=== PATIENT | female | born 1995 | race Caucasian/White ===

== ENCOUNTER 2021-02-15 15:11 | Emergency (ER) | payer SELFPAY ==
--- OUTSIDE RECORDS SUMMARY | 2021-02-15 15:13 | XMS REPORT | Continuity of Care Document ---
:1995 Author Organization [facility] Address [address] [place] [address] [address] 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 Social History Smoking Status Start Date Stop Date Source Light Tobacco Smoker [facility] Medications Ordered Filled Start Stop Current Ordering Indication Dosage Frequency Signature Comments Components Source Medication Medication Date Date Medication? Clinician (SIG) Name Name Flagyl 500 Flagyl 500 No 1 Q12H Flagyl 500 [place] mg tablet mg tablet mg tablet da Take 1 Take 1 Take 1 [facility] tablet tablet tablet al every 12 every 12 every 12 Hea lth hours by hours by hours by Out reac oral route oral route oral route h for 7 days. for 7 days. for 7 Program days. hydroxyzine hydroxyzine No 1 Q1D hydroxyzin [place] HCl 25 mg HCl 25 mg e HCl 25 d a tablet Take tablet Take mg tablet [facility] 1 tablet 1 tablet Take 1 al every day every day tablet Hea lth by oral by oral every day Outr eac route. route. by oral h route. Program Lessina 0.1 Lessina 0.1 No 1 Q1D Lessina [place] mg-20 mcg mg-20 mcg 0.1 mg-20 da tablet Take tablet Take mcg tablet [facility] 1 tablet 1 tablet Take 1 al every day every day tablet Hea lth by oral by oral every day Outr eac route. route. by oral h route. Program azithromyci azithromyci No 2 Q1D azithromyc [place] n 500 mg n 500 mg in 500 mg da tablet Take tablet Take tablet [facility] 2 tablets 2 tablets Take 2 al every day every day tablets He alth by oral by oral every day Outr eac route for 1 route for 1 by oral h day. day. route for Program 1 day. Vital Signs Vital Name Observation Time Observation Value Comments Source BP Diastolic 2019-03-27 00:00:00 90 mm[Hg] [facility] Height 2019-03-27 00:00:00 59 [in_i] [facility] BMI (Body Mass 2019-03-27 00:00:00 25 kg/m2 [facility] Index) [facility] Program BP Systolic 2019-03-27 00:00:00 125 mm[Hg] [facility] Body Weight 2019-03-27 00:00:00 124 [lb_av] [facility] Procedures Procedure Date / Time Performed Performing Clinician Sourc e Cholecystectomy [place] [facility] Dilation and Curettage [place] [facility] Plan of Care Planned Activity Planned Date Details Comments Source Diagnostic Test 2019-03-27 bacterial vaginosis [place] Pending 00:00:00 + vaginitis panel, [facility] [place] vaginal [code = Program bacterial vaginosis + vaginitis panel, vaginal] Encounters Start End Encounter Admission Attending Care Care Encounter Source Date/Time Date/Time Type Type Clinicians Facility Department ID 2019-03-27 2019-03-27 Priscilla BERGER [place] - [id number] 00:00:00 00:00:00 Brenda Huber, [facility] BIOMETRIC SCREENER: [address] E[address] N, SLASH TRIMMER [facility], Out[facility] [id number] [facility] , Ph. Results This patient has no known results.
--- NOTE | 2021-02-15 17:49 | ER ---
Nurse's Notes [facility] Name: Shelbie Mendenhall Age: 25 yrs Sex: Female : 1995 Arrival Date: 02/15/2021 Time: 15:11 Bed Waiting Private MD: Diagnosis: Presentation: 02/15 15:51 Chief complaint: Patient states: "I was working in the garden, but I noticed my foot ss was red and swollen so I looked down and it looks like something maybe bit me.". Coronavirus screen: Vaccine status:. Ebola Screen: Patient denies exposure to infectious person. Patient denies travel to an Ebola-affected area in the 21 days before illness onset. Initial Sepsis Screen: Does the patient meet any 2 criteria? No. Patient's initial sepsis screen is negative. Does the patient have a suspected source of infection? No. Patient's initial sepsis screen is negative. Risk Assessment: Do you want to hurt yourself or someone else? Patient reports no desire to harm self or others. Onset of symptoms was February 15, 2021. 15:51 Method Of Arrival: Ambulatory 15:51 Acuity: LUIS ANGEL 4 ss Historical: - Allergies: 15:53 No Known Allergies; ss - Home Meds: 15:53 None [Active]; ss - PMHx: 15:53 None; ss - PSHx: 15:53 D\\T\\C; Cholecystectomy; ss - Immunization history:: Client reports having NOT received the Covid vaccine. - Social history:: Smoking status: Patient reports the use of cigarette tobacco products, smokes one-half pack cigarettes per day. Assessment: 17:47 Reassessment: called from [facility] three times, no answer. Unable to locate patient. Vital Signs: 15:51 BP 124 / 84; Pulse 123; Resp 18; Temp 99.1(TE); Pulse Ox 96% on R/A; Weight 49.9 kg; ss Height 4 ft. 11 in. (149.86 cm); Pain 6/10; 15:51 Body Mass Index 22.22 (49.90 kg, 149.86 cm) ED Course: 15:11 Patient arrived in ED. mr 15:52 Triage completed. ss 15:53 Arm band placed on right wrist. ss Administered Medications: No medications were administered Outcome: 17:48 Patient left the ED. ss Signatures: Alexia Mckenzie mr Tammy, Brianna, RN RN ss
[2021-02-15 17:53] VITALS: BP 124/84; TEMP 99.1; O2SAT 96
== END 2021-02-15 17:48 | disposition left against medical advice (07) ==
LOC: ER 15:11
DX: Z53.21 Procedure and treatment not carried out due to patient leaving prior to being seen by health care provider (principal)
CPT/HCPCS: 99281

== ENCOUNTER 2022-12-09 18:50 | Emergency (ER) | payer SELFPAY ==
[2022-12-09] MEDS ORDERED: ATROPINE SULF 1 MG/10 ML SYR IV ONE (18:51)
[2022-12-09] MEDS ORDERED: ETOMIDATE 20 MG/10 ML VIAL IV ONE (18:51)
[2022-12-09] MEDS ORDERED: EPINEPHrine 1 MG/10 ML SYR IV ONE (18:51)
[2022-12-09] MEDS ORDERED: Calcium Chloride 10% INJ SYR IV ONE (18:51)
[2022-12-09] MEDS ORDERED: ROCURONIUM 50 MG/5 ML VIAL IV ONE (18:51)
[2022-12-09] MEDS ORDERED: AMIODARONE HCL 150 MG/3 ML INJ IV ONE (18:51)
[2022-12-09] MEDS ORDERED: EPINEPHRINE/PF 1 MG/ML AMP IV ONE (18:51)
--- OUTSIDE RECORDS SUMMARY | 2022-12-09 18:53 | XMS REPORT | Continuity of Care Document ---
:[address] [facility] t Address [address] [place] [address] Care Team Providers Name Role Phone Zunmariliaa_Bridger Attending Clinician Unavailable LAVINIA MEJIA Attending Clinician Unavailable VIK TERRELL Attending Clinician Unavailable SKYE Attending Clinician Unavailable Jen Attending Clinician Unavailable LYLA LEE Attending Clinician Unavailable Robert Isabel Attending Clinician Unavailable DAVID CAPELLAN Attending Clinician Unavailable SEBAS BARBA Attending Clinician Unavailable Jolynn Gtz Attending Clinician Unavailable JOSÉ GRAYSON Attending Clinician Unavailable RUBEN ALICEA Attending Clinician Unavailable GINGER GARCIA Attending Clinician Unavailable Ariadna ANN Attending Clinician Unavailable ABIOLA CASTRO Attending Clinician Unavailable Zunmariliaa_S Admitting Clinician Unavailable SKYE Admitting Clinician Unavailable Jen Admitting Clinician Unavailable Robert Isabel Admitting Clinician Unavailable Jolynn Gtz Admitting Clinician Unavailable Payers Payer Name Policy Type Policy Number Effective Date Expiration Date Bridger j[place] HAR[place] [id number] 2021 ADVANT[place] (HMO) 00:00:00 [place] [id number] [place] (PPO) 00:00:00 Problems Condition Condition Condition Status Onset Resolution Last Treating Co mments Source Name Details Category Date Date Treatment Clinician Date Major Major Problem Active [place] depressive Depressive da disorder Disorder [facility] Posttrauma Posttrauma Problem Active M at[facility] tic stress tic Stress da disorder Disorder [facility] History of History of Problem Active M at[facility] 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 Social History Smoking Status Start Date Stop Date Source Light Tobacco Smoker [facility] Medications Ordered Filled Start Stop Current Ordering Indication Dosage Frequency Signature Comments Components Source Medication Medication Date Date Medication? Clinician (SIG) Name Name yaneth davidsonithcleoarnav No 2 Q1D azithromyc [place] n 500 mg n 500 mg in 500 mg da tablet Take tablet Take tablet [facility] 2 tablets 2 tablets Take 2 al every day every day tablets He alth by oral by oral every day Outr eac route for 1 route for 1 by oral h day. day. route for Program 1 day. Flagyl 500 Flagyl 500 No 1 Q12H [...] route. route. by oral h route. Program Vital Signs Vital Name Observation Time Observation Value Comments Source BP Diastolic 2019-03-27 00:00:00 90 mm[Hg] [facility] [facility] Height 2019-03-27 00:00:00 59 [in_i] [place] [facility] BMI (Body Mass 2019-03-27 00:00:00 25 kg/m2 [facility] BP Systolic 2019-03-27 00:00:00 125 mm[Hg] [place] [facility] Body Weight 2019-03-27 00:00:00 124 [lb_av] [facility] Procedures Procedure Date / Time Performed Performing Clinician Sourc e Cholecystectomy [place] [facility] Dilation and Curettage [place] [facility] Plan of Care Planned Activity Planned Date Details Comments Source Diagnostic Test 2019-03-27 bacterial vaginosis [place] [facility] Pending 00:00:00 + vaginitis panel, [facility] vaginal [code = Program bacterial vaginosis + vaginitis panel, vaginal] Encounters Start End Encounter Admission Attending Care Care Encounter Source Date/Time Date/Time Type Type Clinicians Facility Department ID 2022-03-08 Outpatient [facility] [id number] [place] 09:03:23 [id number] [facility] 2022-12-08 2022-12-08 Outpatient SFA [id number] [id number] Yevgeniy 09:29:16 09:29:16 [id number] [place] 2021-11-10 2021-11-10 Outpatient Zuniga_S [facility] MMG [id number] [place] 11:42:00 11:42:00 [facility] 2021-07-13 2021-07-13 Emergency ER OWO, TOKS [facility] [id number] [place] 09:39:00 10:50:00 -[id number] [facility] 2021-03-22 2021-03-23 Emergency ER VIK TERRELL [facility] [id number] [place] 22:50:00 01:45:00 -[id number] [facility] 2020-12-29 2020-12-29 Outpatient JESUS_RANI BERGER [id number] [place] 04:11:00 04:11:00 SSA 0524 [facility] 2020-12-29 2020-12-29 Outpatient JENN HIDEVAUGHN [facility] [id number] [place] 00:00:00 00:00:00 SSA 0712 [facility] 2020-02-19 2020-02-19 Outpatient Young_J [facility] [id number] [place] 04:32:00 04:32:00 [facility]01 [facility] 2020-02-11 2020-02-11 [facility] [id number] [place] 12:05:00 12:05:00 0824 [facility] 2019-04-04 2019-04-04 Outpatient JENN BERGER [facility] [id number] [place] 05:13:00 05:13:00 SSA 1106 [facility] 2019-03-27 2019-03-27 Lyla [facility] [place] - [id number] [facility] 00:00:00 00:00:00 Brenda Geovanny Huber, [facility] DIRECTOR HEMATOLOGY: [address] F N, SUPERVISOR L[employer]STOCK YARD [facility], [place] [address] [facility] , Ph. 2018-08-22 2018-08-22 Outpatient NICHOL LEE [facility] [id number] [place] 14:27:00 14:27:00 LYLA -[id number] [facility] 2015-05-22 2015-05-22 Emergency ER OWO, TOKS [facility] [id number] [place] 17:19:00 18:25:00 -[id number] [facility] 2015-02-11 2015-02-12 Inpatient ER Chalo, [facility] [id number] [place] 07:13:00 13:16:00 Robert -[id number] [facility] 2014-08-03 2014-08-03 Emergency ER CAPELLAN, [facility] [id number] [place] 09:44:00 11:30:00 WASIM -[id number] [facility] 2014-02-06 2014-02-06 Emergency [facility] [id number] [place] 20:49:00 22:15:00 OBIDIKE -[id number] [facility] 2012-12-24 2012-12-26 Inpatient EL Tresa, [facility] [id number] [place] 15:08:00 14:20:00 Jolynn -[id number] [facility] 2012-12-23 2012-12-23 Emergency [place], [facility] [id number] [place] 03:02:00 04:25:00 Jolynn -[id number] [facility] 2012-12-21 2012-12-21 Emergency [place], [facility] [id number] [place] 01:23:00 02:45:00 Jolynn -[id number] [facility] 2012-12-18 2012-12-18 [facility] [place] [id number] [place] 19:02:00 22:03:00 Jolynn -[id number] [facility] 2012-12-08 2012-12-08 Emergency ER [place], [facility] [id number] [place] 21:10:00 22:43:00 [facility] -[id number] [facility] 2012-12-01 2012-12-01 Emergency ER [place], [facility] [id number] [place] 11:29:00 15:35:00 Jolynn -[id number] [facility] 2012-11-29 2012-11-29 Emergency ER [place], [facility] [id number] [place] 18:24:00 21:30:00 Jolynn -[id number] [facility] 2012-10-20 2012-10-20 Emergency ER Tresa, [facility] [id number] [place] 11:03:00 13:55:00 Jolynn -[id number] [facility] 2012-08-03 2012-08-04 Emergency ER UGORJI, [facility] [id number] [place] 22:26:00 01:00:00 JOSÉ -[id number] [facility] 2012-02-23 2012-02-23 Outpatient UR [place], [facility] [id number] [place] 12:29:00 12:29:00 Jolynn -[id number] [facility] 2012-02-20 2012-02-20 Outpatient EL Tresa, [facility] [id number] [place] 12:34:00 12:34:00 Jolynn -[id number] [facility] 2012-02-17 2012-02-17 Outpatient EL Tresa, [facility] [id number] [place] 07:40:00 07:40:00 Jolynn -[id number] [facility] 2012-02-16 2012-02-16 Outpatient UR Tresa, [facility] [id number] [place] 09:00:00 09:00:00 Jolynn -[id number] [facility] 2012-02-13 2012-02-13 Outpatient UR Tresa, [facility] [id number] [place] 11:46:00 11:46:00 Jolynn -[id number] [facility] 2012-02-11 2012-02-11 Emergency ER ALICEA, [facility] [id number] [place] 00:37:00 02:30:00 RUBEN -[id number] [facility] 2010-05-08 2010-05-08 Emergency ER RADHA, [facility] [id number] [place] 20:07:00 22:28:00 GINGER -[id number] [facility] 2003-04-02 2003-04-02 Outpatient EL SETH, [facility] [id number] [place] 11:22:00 11:22:00 Ariadna -[id number] [facility] 2002-04-16 2002-04-16 Outpatient EL SETH, [facility] [id number] [place] 10:20:00 10:20:00 Ariadna -[id number] [facility] 2002-01-16 2002-01-17 Emergency ER SOUMORENITA, [facility] [id number] [place] 21:04:00 00:20:00 [id number] [facility] Results This patient has no known results.
[2022-12-09] MEDS ORDERED: NA CHLORIDE 0.9% 1,000 ML ONE (19:07)
[2022-12-09] MEDS ORDERED: RSI MEDICATION KIT IV ONE (19:07)
[2022-12-09] MEDS ORDERED: propofoL 1,000 MG/100 ML VIAL IV ONE (19:19)
[2022-12-09] MEDS ORDERED: Ringers Lactate 1,000 ML IV ONE (19:25)
[2022-12-09] MEDS ORDERED: NOREPINEPHRINE BITARTRATE/D5W 4 MG/250 ML BAG IV ONE (19:27)
[2022-12-09] MEDS ORDERED: SODIUM BICARB 50 MEQ/50ML VIAL ONE (19:28)
--- NOTE | 2022-12-09 19:57 | RAD REPORT ---
EXAM DESCRIPTION: RAD - Chest Single View - 12/09/2022 7:51 pm CLINICAL HISTORY: CHEST PAIN Chest pain. COMPARISON: No comparisons FINDINGS: Portable technique limits examination quality. The lungs are grossly clear. The heart is normal in size. No displaced fractures.The tip of the endot sean tube is above the susy. Enteric tube is coiled in the stomach.
[2022-12-09 20:00] LABS: Protime INR 1.76
--- NOTE | 2022-12-09 20:14 | RAD REPORT ---
EXAM DESCRIPTION: CT - [id number] - 12/09/2022 8:07 pm CLINICAL HISTORY: Trauma, head and neck injury. ams COMPARISON: <Comparisons> TECHNIQUE: Axial 5 mm thick images of the head were obtained. Axial 2 mm thick images of the cervical spine were obtained with sagittal and coronal reconstruction images generated and reviewed. All CT scans are performed using dose optimization technique as appropriate and may include automated exposure control or mA/KV adjustment according to patient size. FINDINGS: CT HEAD WITHOUT CONTRAST: No acute hemorrhage, hydrocephalus or extra-axial collection is identified.No areas of brain edema or midline shift. 1 cm cyst in the right maxillary antrum.The paranasal sinuses and mastoids are otherwise clear.The ca lvarium is intact. CT CERVICAL SPINE WITHOUT CONTRAST: No fracture or subluxation.No prevertebral soft tissues swelling is identified. Endotracheal intubati on noted. Enteric tube also noted. IMPRESSION: No acute intracranial or cervical spine findings.
[2022-12-09 20:15] LABS: Albumin 2.4 g/dL (3.4-5.0); Bilirubin Direct 0.4 mg/dL (0-0.2); Bilirubin Indirect, Calculated 0.3 mg/dL (0.2-0.8); Bilirubin Total 0.7 mg/dL (0.2-1.0); Protein, Total 5.2 g/dL (6.4-8.2)
[2022-12-09 20:22] LABS: Magnesium 1.5 mg/dL (1.6-2.4); Potassium 3.3 mEq/L (3.5-5.1)
[2022-12-09] MEDS ORDERED: EPINEPHrine 1 MG/10 ML SYR ONE (21:17)
[2022-12-09 21:27] LABS: Arterial Blood Carboxyhemoglob 0.2 % (0-1.5); Blood Gas Oxyhemoglobin 97.6 % (94-97); Blood O2 Saturation 99.4 % (92-98.5)
--- NOTE | 2022-12-09 21:28 | EDPHYS ---
Physician Documentation [facility] Name: Shelbie Mendenhall Age: 27 yrs Sex: Female : 1995 Arrival Date: 12/09/2022 Time: 18:50 Bed 4 Private MD: ED Physician Fabrizio Haddad HPI: 12/09 21:51 This 27 yrs old Female presents to ER via Wheelchair with complaints of Possible rt Overdose. 21:51 History unobtainable due to patient with altered mental status and unresponsiveness. rt Patient was reportedly dropped off by an acquaintance, nonfamily member, after reportedly using crystal methamphetamine. Patient reportedly was hallucinating, running around, later became unresponsive so was brought for further evaluation. No further history could be obtained, symptoms are severe in severity, no other aggravating or alleviating factors reported.. 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 - Social history:: Smoking status: unknown. - Unable to obtain history due to: altered mental status. ROS: 21:51 Unable to obtain ROS due to altered mental status. rt Exam: 21:51 ECG was reviewed by the Attending Physician. rt 21:54 Constitutional: The patient appears Unresponsive to painful stimuli, appears to be in rt acute distress 21:54 Head/face: No external evidence of trauma. 21:54 Eyes: Pupils midline, constricted, sluggishly reactive. 21:54 ENT: Dry mucous membrane. 21:54 Neck: Trachea midline. 21:54 Chest/axilla: No deformities, crepitus. 21:54 Cardiovascular: Significantly tachycardic, regular rhythm, heart sounds normal. 21:54 Respiratory: Agonal respirations, breath sounds clear bilaterally. 21:54 Abdomen/GI: No distention. 21:54 Musculoskeletal/extremity: No external evidence of trauma, deformities. 21:54 Neuro: GCS 3. 21:54 Psych: Not assessable. Vital Signs: 19:00 Pulse 190; Resp 6; ll1 19:14 BP 76 / 49; Pulse 191; Resp 20; Pulse Ox 100% on 100% FiO2 ETT vent; rv 19:50 Temp 105.6(Ca); rv 20:09 Weight 63.96 kg; rv Procedures: 22:03 Lumbar Puncture: Patient placed in right lateral decubitus position. Collected 5 ml's rt of clear fluid. Puncture site dressed with band aid, Patient tolerated well. Cardioversion: (synchronized) for treatment of SVT, with 200 joules X 02. Post procedure rhythm is unchanged, the patient tolerated the procedure well. CPR: See CPR flow sheet. Initial patient assessment: unresponsive, The presenting cardiac rhythm is V tach. respirations assisted with BVM, the patient was intubated prior to arrival, Compressions: began Meds given: See Meds list. Defibrillation: 200 joules X 6. despite ED evaluation and treatment, the patient . Family notified. CPR was stopped at 21:20. Intubation: Intubated orally using # 4 Mckenna blade with 7.5 mm ETT. Successful on second attempt. Ventilated with ventilator. Tube secured with ETT gil measured 23 cm at lip. Placement verified by CXR, CO2 detector with (+) color change, auscultating bilateral breath sounds, O2 saturation after procedure was 100 %. Patient tolerated well. Central Line: the site was prepped with Chlorhexidine, a triple lumen catheter was inserted, in the right femoral vein, in 1 attempts. placement was verified, by blood return, the site was dressed with Chlorhexidine impregnated dressing, the patient tolerated the procedure, well. Ultrasound: Type: Cardiac, performed by the emergency department physician, No contractility seen on cardiac ultrasound. MDM: 18:58 Patient medically screened. [facility] 22:03 Differential Diagnosis Sepsis, intracranial hemorrhage, methamphetamine overdose, rt dysrhythmia, rhabdomyolysis, disseminated intravascular coagulation.. Data reviewed: vital signs, nurses notes. I considered the following discharge prescriptions or medication management in the emergency department Medications were administered in the Emergency Department. See MAR. Independent interpretation of the following test(s) in the Emergency Department X-Ray: My interpretation is ET tube seen above the susy my interpretation of the CT x-ray images. Care significantly affected by the following Social Determinants of Health: Misuse of alcohol and/or drugs. ED course: Patient presented to the ED after reportedly consuming methamphetamines. She was initially unresponsive, after attempts at Narcan administration with no improvement of the mental status, decided to intubate the patient for airway protection. At that time, the patient was significantly hypertensive with tachycardia with the presence of an SVT. After intubation, the patient's blood pressure dropped, I elected to shock the patient with no change in the rhythm. Central and was started, Levophed was started with initial improvement of the blood pressure. Patient was found to be hypertensive. Rocuronium not likely to cause malignant hyperthermia, therefore, dantrolene was not indicated. Sepsis was considered, lumbar puncture was performed. No other signs of infection. Patient subsequently developed a wide-complex rhythm and bradycardia down to a slow ventricular tachycardia and lost pulses. CPR was started, patient was coded for a long time with no return of rhythm despite multiple rounds of medications, shocks. Patient developed bleeding in the oropharynx as well as the ET tube, I suspect that DIC was the inciting factor for the cardiac arrest. Further resuscitative efforts were deemed to be futile at that time, the time of was called, family was contacted as well as the justice court deputy clerk. 12/10 09:56 ED course: After critical was placed, patient was found to be hypothermic, at that rt time, cooling measures were started.. 12/09 19:07 Order name: Acetaminophen; Complete Time: 20:25 rt 12/09 19:07 Order name: Basic Metabolic Panel; Complete Time: 20:25 rt 12/09 19:07 Order name: ETOH Level; Complete Time: 20:15 rt 12/09 19:07 Order name: Hepatic Function; Complete Time: 20:25 rt 12/09 19:07 Order name: PT-INR; Complete Time: 20:15 rt 12/09 19:07 Order name: Ptt, Activated; Complete Time: 20:15 rt 12/09 19:07 Order name: Salicylate; Complete Time: 20:33 rt 12/09 19:07 Order name: CPK; Complete Time: 20:25 rt 12/09 19:07 Order name: Magnesium; Complete Time: 20:25 rt 12/09 19:08 Order name: ABG; Complete Time: 00:03 rt 12/09 19:09 Order name: Glucose, Ancillary Testing; Complete Time: 20:15 EDMS 12/09 19:07 Order name: CT Head C Spine; Complete Time: 20:15 rt 12/09 19:07 Order name: Chest Single View XRAY; Complete Time: 20:15 rt 12/09 19:07 Order name: EKG; Complete Time: 19:08 rt 12/09 19:07 Order name: EKG - Nurse/Tech; Complete Time: 19:12 rt 12/09 19:07 Order name: IV Saline Lock; Complete Time: 19:12 rt 12/09 19:07 Order name: Labs collected and sent; Complete Time: 23:24 rt 12/09 19:12 Order name: Burris; Complete Time: 19:46 la1 12/09 19:12 Order name: NG Tube; Complete Time: 19:46 la1 12/09 20:16 Order name: Misc. Order: RECOLLECT LAVENDER TOP rv1 12/09 21:54 Order name: Misc. Order: Ventilator rt EC/22 21:51 Rate is 201 beats/min. Rhythm is regular, SVT with Rate related ST and T wave changes. rt Right axis deviation noted. QRS interval is normal. QT interval is normal. No Q waves. Administered Medications: 18:50 Drug: Naloxone IVP 1 mg Route: IVP; Site: right hand; ph 18:57 Drug: Naloxone IVP 1 mg Route: IVP; Site: right hand; ph 19:02 Drug: Etomidate IVP 20 mg Route: IVP; Site: right hand; ph 19:02 Drug: Rocuronium IVP 100 mg Route: IVP; Site: right hand; ph 19:20 Drug: Lactated Ringers Solution IV 1000 ml Route: IV; Rate: bolus; Site: left hand; pf1 21:00 Follow up: IV Status: Completed infusion; IV Intake: 1000ml rv 19:22 Drug: Sodium Bicarbonate IVP 2 amp Route: IVP; Site: left hand; rv 19:29 Drug: Sodium Bicarbonate IVP 2 amp Route: IVP; Site: right forearm; kl 19:29 Drug: Lactated Ringers Solution IV 1000 ml Route: IV; Rate: 1000 bolus; Site: left kl forearm; 19:50 Drug: Propofol IV 5 mcg/kg/min Route: IV; Rate: calculated rate; Site: right femoral; rv 20:48 Drug: EPINEPHrine 1:10,000 IVP 1 mg {Note: PEA.} Route: IVP; Site: right femoral; rv 20:49 Drug: Sodium Bicarbonate IVP 1 amp Route: IVP; Site: right femoral; rv 20:51 Drug: EPINEPHrine 1:10,000 IVP 1 mg {Note: PEA.} Route: IVP; Site: right femoral; rv 20:53 Drug: EPINEPHrine 1:10,000 IVP 1 mg {Note: PEA.} Route: IVP; Site: right femoral; rv 20:53 Drug: EPINEPHrine 1:10,000 IVP 1 mg Route: IVP; Site: right femoral; rv 20:57 Drug: EPINEPHrine 1:10,000 IVP 1 mg Route: IVP; Site: right femoral; rv 20:58 Drug: amiodarone IVP 300 mg {Note: V TACH.} Route: IVP; Site: right femoral; rv 21:00 Drug: EPINEPHrine 1:10,000 IVP 1 mg Route: IVP; Site: right femoral; rv 21:00 Drug: Sodium Bicarbonate IVP 1 amp {Note: V TACH, PULSELESS.} Route: IVP; Site: right rv femoral; 21:02 Drug: Sodium Bicarbonate IVP 1 amp Route: IVP; Site: right femoral; rv 21:03 Drug: EPINEPHrine 1:10,000 IVP 1 mg {Note: V TACH.} Route: IVP; Site: right femoral; rv 21:05 Drug: EPINEPHrine 1:10,000 IVP 1 mg {Note: V TACH.} Route: IVP; Site: right femoral; rv 21:08 Drug: EPINEPHrine 1:10,000 IVP 1 mg {Note: PEA.} Route: IVP; Site: right femoral; rv 21:08 Drug: Atropine IVP 1 mg Route: IVP; Site: right femoral; rv 21:09 Drug: Calcium Chloride IVP 1 grams Route: IVP; Site: right femoral; rv 21:10 Drug: EPINEPHrine 1:10,000 IVP 1 mg {Note: PEA.} Route: IVP; Site: right femoral; rv 21:13 Drug: EPINEPHrine 1:10,000 IVP 1 mg {Note: PEA.} Route: IVP; Site: right femoral; rv 21:15 Drug: EPINEPHrine 1:10,000 IVP 1 mg {Note: PEA.} Route: IVP; Site: right femoral; rv 21:17 Drug: EPINEPHrine 1:10,000 IVP 1 mg {Note: PEA.} Route: IVP; Site: right femoral; rv Disposition Summary: 12/09/22 21:26 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 Total rt time: 55 minutes Signatures: Dispatcher [employer] EDAnabel George, RN RN Jr Llamas PA PA jmm Blanchard, Shelby, LEON RN ss Jose Good, TIP CUTTER-C TIP CUTTER-Cla1 Cyndi Day RN RN Daryl Gray RN LEON rv Brett Jamison RN RN ll1 Edgardo Olivo MD MD rt Cornelia Galindo RN RN pf1 Niecy Merritt rv1 Corrections: (The following items were deleted from the chart) 12/09 23:24 19:07 Suicide Screening ([place]) ordered. rt rv
--- NOTE | 2022-12-09 21:28 | ER ---
Nurse's Notes [facility] Name: Shelbie Mendenhall Age: 27 yrs Sex: Female : 1995 Arrival Date: 12/09/2022 Time: 18:50 Bed 4 Private MD: Diagnosis: Cardiac arrest, cause unspecified Presentation: 12/09 18:54 Chief complaint: Unresponsive. Possible overdose. ss 18:54 Acuity: LUIS ANGEL 1 ss 19:00 Ebola Screen: Patient denies travel to an Ebola-affected area in the 21 days before 1 illness onset. Initial Sepsis Screen: Does the patient meet any 2 criteria? Altered Mental Status. HR > 90 bpm. Yes Does the patient have a suspected source of infection? No. Patient's initial sepsis screen is negative. Risk Assessment: Do you want to hurt yourself or someone else? Patient reports no desire to harm self or others. Onset of symptoms was December 09, 2022. 19:00 Method Of Arrival: Wheelchair [facility] 19:00 Care prior to arrival: Assisted ventilation. rv 21:00 Coronavirus screen: Vaccine status:. rv 22:05 Compressions began at 20:48. rv Triage Assessment: 19:00 General: Appears unkempt, malnourished, Behavior is unresponsive. Pain: Denies pain. ll1 Neuro: Reports Friend states took "crystal meth" earlier today. Respiratory: Reports labored breathing the patient has severe shortness of breath. 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 - Social history:: Smoking status: unknown. - Unable to obtain history due to: altered mental status. Screenin:20 [facility] ED Fall Risk Assessment (Adult) History of falling in the last 3 months, rv including since admission. Abuse screen: UNABLE, UNRESPONSIVE. Abuse screen: UNABLE, UNRESPONSIVE. Nutritional screening: UNABLE, UNRESPONSIVE. Tuberculosis screening: UNABLE, UNRESPONSIVE. Assessment: 19:15 Reassessment: SYNC CARDIOVERSION 200J DELIVERED. rv 19:17 Reassessment: SYNC CARDIOVERSION 200J DELIVERED. rv 19:22 Reassessment: BP OF 77/39, HR OF 186, LEVOPOHED STARTED AT 5MCG/MIN VIA PERIPHERAL IV. rv 20:48 CPR assessment: unresponsive, Ambu ventilation. Cardiac rhythm is PEA. rv 20:48 Reassessment: CPR INITIATED, DR ALTAMIRANO AT BEDSIDE, EPI GIVEN. rv 20:50 Reassessment: PULSE CHECK: PEA, RESUMED COMPRESSIONS. rv 20:52 Reassessment: PULSE CHECK: PEA, RESUMED COMPRESSIONS. rv 20:54 Reassessment: PULSE CHECK: PEA, RESUMED COMPRESSIONS. rv 20:56 Reassessment: PULSE CHECK: PEA, RESUMED COMPRESSIONS. rv 20:57 Reassessment: PULSE CHECK: PULSELESS V TACH, SHOCK DELIVERED 200J BIPHASIC. RESUMED rv COMPRESSIONS. 20:59 Reassessment: PULSE CHECK: PULSELESS V TACH, SHOCK DELIVERED 200J BIPHASIC. RESUMED rv COMPRESSIONS. 21:01 Reassessment: PULSE CHECK: PULSELESS V TACH, SHOCK DELIVERED 200J BIPHASIC. RESUMED rv COMPRESSIONS. 21:03 Reassessment: PULSE CHECK: PULSELESS V TACH, SHOCK DELIVERED 200J BIPHASIC. RESUMED rv COMPRESSIONS. 21:05 Reassessment: PULSE CHECK: PULSELESS V TACH, SHOCK DELIVERED 200J BIPHASIC. RESUMED rv COMPRESSIONS. 21:07 Reassessment: PULSE CHECK: PEA, RESUMED COMPRESSIONS. rv 21:09 Reassessment: PULSE CHECK: PEA, RESUMED COMPRESSIONS. rv 21:12 Reassessment: PULSE CHECK: V FIB, SHOCK DELIVERED 200J BIPHASIC, RESUMED COMPRESSIONS. rv 21:14 Reassessment: PULSE CHECK: PEA, RESUMED COMPRESSIONS. rv 21:16 Reassessment: PULSE CHECK: PEA, RESUMED COMPRESSIONS. rv 21:18 Reassessment: PULSE CHECK: ASYSTOLE, RESUMED COMPRESSIONS. rv 21:20 Reassessment: PULSE CHECK: ASYSTOLE, PRONOUNCED BY DR ALTAMIRANO. FAMILY AT THE rv BEDSIDE. Vital Signs: 19:00 Pulse 190; Resp 6; ll1 19:14 BP 76 / 49; Pulse 191; Resp 20; Pulse Ox 100% on 100% FiO2 ETT vent; rv 19:50 Temp 105.6(Ca); rv 20:09 Weight 63.96 kg; rv ED Course: 18:50 Patient arrived in ED. rg4 18:54 Triage completed. ss 18:55 Arm band placed on Patient placed in an exam room, on a stretcher. ll1 18:55 Inserted saline lock: 22 gauge in right hand, using aseptic technique. ph 18:58 Edgardo Altamirano MD is Attending Physician. jmm 19:00 Patient has correct armband on for positive identification. rv 19:00 Client placed on continuous cardiac and pulse oximetry monitoring. NIBP monitoring rv applied. property assessment monitor on. 19:03 Assisted provider with intubation using 7.5 mm ETT via oral route. ET tube secured at ph 23cm at the gums. Set up intubation tray. Intubated by Edgardo Altamirano MD Placement verified by CO2 detector w/ + color change, auscultating bilateral breath sounds, Patient tolerated well. 19:38 NGT: inserted 16 Fr. other OGT Placement verified by X-ray, to intermittent suction. rv Patient tolerated well. 19:42 Burris cath inserted, using sterile technique, 16 Fr., by wy, balloon inflated, urine rv specimen collected. returned [place] urine. Patient tolerated well. 19:44 Daryl Gray, LEON is Primary Nurse. rv 19:53 Chest Single View XRAY In Process Unspecified. EDMS 20:09 CT Head C Spine In Process Unspecified. EDMS 21:26 Edgardo Altamirano MD is Pronouncing Provider. rt 23:33 Attending Physician role handed off by Edgardo Altamirano MD sp4 23:33 Fabrizio Haddad MD is Attending Physician. sp4 Administered Medications: 18:50 Drug: Naloxone IVP 1 mg Route: IVP; Site: right hand; ph 18:57 Drug: Naloxone IVP 1 mg Route: IVP; Site: right hand; ph 19:02 Drug: Etomidate IVP 20 mg Route: IVP; Site: right hand; ph 19:02 Drug: Rocuronium IVP 100 mg Route: IVP; Site: right hand; ph 19:20 Drug: Lactated Ringers Solution IV 1000 ml Route: IV; Rate: bolus; Site: left hand; pf1 21:00 Follow up: IV Status: Completed infusion; IV Intake: 1000ml rv 19:22 Drug: Sodium Bicarbonate IVP 2 amp Route: IVP; Site: left hand; rv 19:29 Drug: Sodium Bicarbonate IVP 2 amp Route: IVP; Site: right forearm; kl 19:29 Drug: Lactated Ringers Solution IV 1000 ml Route: IV; Rate: 1000 bolus; Site: left kl forearm; 19:50 Drug: Propofol IV 5 mcg/kg/min Route: IV; Rate: calculated rate; Site: right femoral; rv 20:48 Drug: EPINEPHrine 1:10,000 IVP 1 mg {Note: PEA.} Route: IVP; Site: right femoral; rv 20:49 Drug: Sodium Bicarbonate IVP 1 amp Route: IVP; Site: right femoral; rv 20:51 Drug: EPINEPHrine 1:10,000 IVP 1 mg {Note: PEA.} Route: IVP; Site: right femoral; rv 20:53 Drug: EPINEPHrine 1:10,000 IVP 1 mg {Note: PEA.} Route: IVP; Site: right femoral; rv 20:53 Drug: EPINEPHrine 1:10,000 IVP 1 mg Route: IVP; Site: right femoral; rv 20:57 Drug: EPINEPHrine 1:10,000 IVP 1 mg Route: IVP; Site: right femoral; rv 20:58 Drug: amiodarone IVP 300 mg {Note: V TACH.} Route: IVP; Site: right femoral; rv 21:00 Drug: EPINEPHrine 1:10,000 IVP 1 mg Route: IVP; Site: right femoral; rv 21:00 Drug: Sodium Bicarbonate IVP 1 amp {Note: V TACH, PULSELESS.} Route: IVP; Site: right rv femoral; 21:02 Drug: Sodium Bicarbonate IVP 1 amp Route: IVP; Site: right femoral; rv 21:03 Drug: EPINEPHrine 1:10,000 IVP 1 mg {Note: V TACH.} Route: IVP; Site: right femoral; rv 21:05 Drug: EPINEPHrine 1:10,000 IVP 1 mg {Note: V TACH.} Route: IVP; Site: right femoral; rv 21:08 Drug: EPINEPHrine 1:10,000 IVP 1 mg {Note: PEA.} Route: IVP; Site: right femoral; rv 21:08 Drug: Atropine IVP 1 mg Route: IVP; Site: right femoral; rv 21:09 Drug: Calcium Chloride IVP 1 grams Route: IVP; Site: right femoral; rv 21:10 Drug: EPINEPHrine 1:10,000 IVP 1 mg {Note: PEA.} Route: IVP; Site: right femoral; rv 21:13 Drug: EPINEPHrine 1:10,000 IVP 1 mg {Note: PEA.} Route: IVP; Site: right femoral; rv 21:15 Drug: EPINEPHrine 1:10,000 IVP 1 mg {Note: PEA.} Route: IVP; Site: right femoral; rv 21:17 Drug: EPINEPHrine 1:10,000 IVP 1 mg {Note: PEA.} Route: IVP; Site: right femoral; rv Medication: 21:20 VIS not applicable for this client. rv Intake: 21:00 IV: 1000ml; Total: 1000ml. rv Outcome: 21:20 Outcome Patient rv 21:20 Condition: rv 12/10 00:26 Patient : Time of 21:20 Pronounced by Edgardo Altamirano MD Body released to rv NE 00:27 Patient left the ED. rv Signatures: Dispatcher [employer] EDMS Anabel Jamison, Jr Fields RN, PA PA jmm Blanchard, Shelby RN LEON Cyndi Day RN RN ph Garcia, Rubi rg4 Daryl Gray RN RN rv Brett Jamison RN RN ll1 Edgardo Altamirano MD MD rt Cornelia Galindo RN RN pf1 Fabrizio Haddad MD MD sp4 Corrections: (The following items were deleted from the chart) 12/09 22:12 21:05 EPINEPHrine 1:10,000 IVP 1:10,000 1 mg IVP in right femoral rv rv 23:21 23:20 [facility] ED Fall Risk Assessment (Adult) History of falling in the last 3 months, rv including since admission rv 23: 23:20 Abuse screen: UNABLE, UNRESPONSIVE rv rv 23: 23:20 Abuse screen: UNABLE, UNRESPONSIVE rv rv 23:21 23:20 Nutritional screening: UNABLE, UNRESPONSIVE. rv rv 23:21 23:20 Tuberculosis screening: UNABLE, UNRESPONSIVE. rv rv
[2022-12-10 01:21] VITALS: BP 76/49; O2SAT 100
[2022-12-10 01:24] VITALS: TEMP 105.6
--- NOTE | 2022-12-10 16:29 | EKG ---
Test Date: 2022-12-09 Test Time: 19:07:44 Tacking Machine Operator: JANET MEASUREMENT RESULTS: Intervals: Rate: 201 AL: QRSD: 62 QT: 238 QTc: 435 [place]: P: AL: QRS: 111 T: 99 INTERPRETIVE STATEMENTS: Supraventricular tachycardia with occasional premature ventricular complexes Right axis deviation Marked ST abnormality, possible inferior subendocardial injury Abnormal ECG No previous ECG available for comparison Electronically Signed On 12-10-22 16:27:34 CDT by Monty Frye
== END 2022-12-10 00:27 ==
LOC: ER 18:50
PROC: 0SJ Lower Joints, Inspection (ICD-10-PCS; principal; 2022-12-10)
PROC: 0BH17EZ Insertion of Endotracheal Airway into Trachea, Via Natural or Artificial Opening (ICD-10-PCS; 2022-12-10)
PROC: 5A1935Z Respiratory Ventilation, Less than 24 Consecutive Hours (ICD-10-PCS; 2022-12-10)
PROC: 06HM33Z Insertion of Infusion Device into Right Femoral Vein, Percutaneous Approach (ICD-10-PCS; 2022-12-10)
DX: I46.9 Cardiac arrest, cause unspecified (principal)
CPT/HCPCS: 31500; 36415; 51702; 62270; 70450; 71045; 72125; 80048; 80076; 80143; 80179; 82077; 82550; 82805; 82947; 83735; 85610; 85730; 92950; 92960; 93005; 94002; 99291; 99292; J0171; J0282; J0461; J2704; J7030; J7120